=== PATIENT | female | born 1960 ===

== ENCOUNTER → 2018-05-13 | Day surgery (SDC) | payer OTHER ==
[~2018-05-13] MED LIST: AVILIFY PO; CLONAZEPAM0.5 M1 PO; NAPROXEN SODIU550 M1 PO; ZOLOFT20 MG/1 ML PO
== END | disposition home or self-care (01) ==
LOC: ADM 04-29 08:15 → CIR.AMB 08:09
DX: N84.0 Polyp of corpus uteri (principal)